=== PATIENT | male | born 1985 | race Caucasian/White ===

== ENCOUNTER → 2016-12-30 | Outpatient (CLI) | payer SELFPAY ==
--- NOTE | 2016-12-30 14:21 | REP ---
Clinical: Cough . Comparison: 11/05/2013 . Technique: PA and lateral. Findings: The mediastinum and cardiac silhouette are stable and within normal limits. The lung dolan chronic coarsened markings without acute consolidation, effusion, or pneumothorax. The skeletal structures are intact and normal. Impression: 1. Cannot exclude bronchitis. No focal consolidation. Signed by Sameer Sorenson MD 12/30/2016 02:12 P
== END ==
LOC: M WUC 13:59
PROVIDERS: ATTEND Physician Assistant
DX: R05 Cough (principal)

== ENCOUNTER 2018-10-24 14:37 | Emergency (ER) | payer OTHER, SELFPAY ==
[~2018-10-24] VITALS: Ht 188 cm; Wt 109.1 kg
[2018-10-24 14:37] VITALS: BP 124/78
--- NOTE | 2018-10-24 22:10 | ECGEPIP ---
Stationary ECG Study [facility] - ED Test Date: 2018-10-24 Pat Name: CASEY VALLE Department: Room: - Gender: M Bakery Clerk: : 1985 Requested By: CHANDA NICOLE PA-C. Order Number: [id number] Reading MD: Ramiro Lerner Measurements Intervals [place] Rate: 73 P: 42 VT: 113 QRS: 12 QRSD: 104 T: -6 QT: 391 QTc: 433 Interpretive Statements SINUS RHYTHM WITH SHORT VT INTERVAL Comparison tracing not on file Electronically Signed On 10-24-2018 22:09:43 EDT by Ramiro Lerner
== END 2018-10-24 17:28 | disposition left against medical advice (07) ==
LOC: M ED 14:37
DX: Z53.29 Procedure and treatment not carried out because of patient's decision for other reasons (principal)

== ENCOUNTER → 2018-12-05 | Outpatient (REF) | payer OTHER ==
[2018-12-05 13:53] LABS: BASO # 0.1 10^3/uL (0.0-0.2); BASO % 1.1 % (0.0-1.0); EOS # 0.4 10^3/uL (0.0-0.50); EOS % 3.5 % (0.0-3.0); HEMATOCRIT 48.7 % (42.0-52.0); HEMOGLOBIN 16.9 g/dl (13.5-17.5); LYMPH # 4.3 10^3/uL (1.5-4.5); LYMPH % 35.8 % (24.0-44.0); MEAN CORPUSCULAR HEMOGLOBIN 32.1 pg (27.0-33.0); MEAN CORPUSCULAR HGB CONC 34.7 g/dl (32.0-36.5); MEAN CORPUSCULAR VOLUME 92.6 fl (80.0-96.0); MONO # 0.9 10^3/uL (0.0-0.8); MONO % 7.8 % (0.0-5.0); NEUTROPHILS # 6.1 10^3/uL (1.8-7.7); NEUTROPHILS % 51.5 % (36.0-66.0); PLATELET COUNT, AUTOMATED 315 10^3/uL (150-450); RED BLOOD COUNT 5.26 10^6/uL (4.30-6.10); WHITE BLOOD COUNT 11.9 10^3/uL (4.0-10.0)
[2018-12-05 13:58] LABS: ALBUMIN 4.1 GM/DL (3.2-5.2); ALT/SGPT 27 U/L (12-78); BILIRUBIN,TOTAL 0.7 MG/DL (0.2-1.0); BLOOD UREA NITROGEN 7 MG/DL (7-18); CALCIUM LEVEL 8.6 MG/DL (8.5-10.1); CARBON DIOXIDE LEVEL 25 MEQ/L (21-32); CHLORIDE LEVEL 109 MEQ/L (98-107); CHOLESTEROL LEVEL 177 MG/DL (<200); CHOLESTEROL RISK RATIO 6.807 (<5); CREATININE FOR GFR 1.03 MG/DL (0.70-1.30); FREE T4 1.16 NG/DL (0.76-1.46); GLOMERULAR FILTRATION RATE > 60.0 (>60); GLUCOSE, FASTING 91 MG/DL (70-100); HDL CHOLESTEROL 26 MG/DL (>40); LDL CHOLESTEROL 90 MG/DL (<100); NON-HDL-C 151 MG/DL; POTASSIUM SERUM 3.7 MEQ/L (3.5-5.1); SODIUM LEVEL 140 MEQ/L (136-145); TOTAL PROTEIN 6.8 GM/DL (6.4-8.2); TRIGLYCERIDES LEVEL 306 MG/DL (<150)
[2018-12-05 14:00] LABS: TOTAL 25(OH) VITAMIN D 8.6 NG/ML (30.0-100.0)
[2018-12-05 15:29] LABS: HEMOGLOBIN A1c 5.3 %
[2018-12-07 14:11] LABS: Lyme Disease IgG/IgM Antibodie <0.91 ISR (0.00-0.90); Lyme Disease IgM Ab Quantitati <0.80 index (0.00-0.79)
== END ==
LOC: M LAB REF 12:31
PROVIDERS: ATTEND Family Medicine
DX: Z13.228 Encounter for screening for other metabolic disorders (principal); F32.9 Major depressive disorder, single episode, unspecified

== ENCOUNTER → 2018-12-05 | Outpatient (REF) | payer OTHER ==
[2018-12-05 14:16] LABS: APPEARANCE, URINE CLEAR (CLEAR); BACTERIA, URINE AUTO NEGATIVE (NEGATIVE); BILIRUBIN, URINE AUTO NEGATIVE (NEGATIVE); BLOOD, URINE BLOOD NEGATIVE (NEGATIVE); COLOR, URINE YELLOW (YELLOW); GLUCOSE, URINE (UA) AUTO NEGATIVE (NEGATIVE); KETONE, URINE AUTO NEGATIVE (NEGATIVE); LEUKOCYTE ESTERASE, URINE AUTO NEGATIVE (NEGATIVE); MUCUS, URINE SMALL (NEGATIVE); NITRITE, URINE AUTO NEGATIVE (NEGATIVE); PROTEIN, URINE AUTO NEGATIVE (NEGATIVE); RBC, URINE AUTO 0 /HPF (0-3); SPECIFIC GRAVITY URINE AUTO 1.005 (1.002-1.035); SQUAMOUS EPITHELIAL CELL UR AU 0 /HPF (0-6); UROBILINOGEN, URINE AUTO 0.2 mg/dL (0.0-2.0); WBC, URINE AUTO 0 /HPF (0-3)
== END ==
LOC: M LAB REF 12:10
PROVIDERS: ATTEND Family Medicine
DX: Z13.228 Encounter for screening for other metabolic disorders (principal); F32.9 Major depressive disorder, single episode, unspecified

== ENCOUNTER → 2020-12-02 | Outpatient (CLI) | payer OTHER ==
--- NOTE | 2020-12-02 12:06 | REPPI ---
INDICATION: M54.32 M79.602 PAIN IN LEFT ARM SCIATICA. COMPARISON: None. TECHNIQUE: AP, lateral, swimmer's and open-mouth views of the cervical spine. FINDINGS: Alignment and lordosis maintained without acute fracture/compression injury or subluxation. Marginal osteophytosis noted. Minimal disc space narrowing at C5-6 and C6-7. IMPRESSION: Degenerative spondylosis. <Electronically signed by Sameer Sorenson > 12/02/20 1200
--- NOTE | 2020-12-02 12:13 | REPPI ---
INDICATION: M54.32 M79.602 PAIN IN LEFT ARM SCIATICA. COMPARISON: Comparison MRI study November 03, 2013.. TECHNIQUE: Three views of the lumbar spine are provided. FINDINGS: Lumbar vertebral body heights are preserved. Alignment is normal. There is no evidence of spondylolysis or spondylolisthesis. Psoas margins are intact. Sacrum and SI joints appear intact. There is degenerative disc space narrowing at L4-5 which is unchanged from the comparison MR imaging in 2013. Other disc spaces are maintained. No bony destructive lesion is seen. No fracture or collapse is noted. IMPRESSION: Mild degenerative disc narrowing at L4-5. Otherwise negative lumbar spine radiographs. <Electronically signed by Basil Covarrubias > 12/02/20 [id number]
== END ==
LOC: M PLAIMG 11:31
PROVIDERS: ATTEND Physician Assistant
DX: M54.32 Sciatica, left side (principal); M79.602 Pain in left arm

== ENCOUNTER 2020-12-22 22:40 | Emergency (ER) | payer OTHER ==
[~2020-12-22] VITALS: Ht 188 cm; Wt 114.7 kg
[2020-12-23 00:28] LABS: MEAN CORPUSCULAR HEMOGLOBIN 32.7 pg (27.0-33.0); MEAN CORPUSCULAR HGB CONC 35.3 g/dl (32.0-36.5); MEAN CORPUSCULAR VOLUME 92.6 fl (80.0-96.0); PLATELET COUNT, AUTOMATED 184 10^3/uL (150-450); RED BLOOD COUNT 5.51 10^6/uL (4.30-6.10)
[2020-12-23 00:39] LABS: WHITE BLOOD COUNT 17.3 10^3/uL (4.0-10.0)
[2020-12-23 00:44] LABS: ALBUMIN 4.2 GM/DL (3.2-5.2); BILIRUBIN,DIRECT 0.1 MG/DL (0.0-0.2); BILIRUBIN,TOTAL 0.5 MG/DL (0.2-1.0); TOTAL PROTEIN 7.6 GM/DL (6.4-8.2)
[2020-12-23 00:46] LABS: ATYPICAL LYMPH 5 % (0-5); BASOPHILS 3 % (0-1); EOSINOPHILS 8 % (0-3); LYMPHOCYTES 36 % (16-44); MONOCYTES 4 % (0-5); NEUTROPHILS 44 % (28-66)
[2020-12-23 00:47] LABS: PLATELET ESTIMATE NORMAL (NORMAL)
--- NOTE | 2020-12-23 01:25 | REPVR ---
PROCEDURE INFORMATION: Exam: XR Complete Acute Abdomen Series Exam date and time: 12/22/2020 11:59 PM Age: 35 years old Clinical indication: Abdominal pain; Acute TECHNIQUE: Imaging protocol: XR complete acute abdomen series, including 2 or more views of the abdomen and a single view chest. COMPARISON: CR CHEST 2 VIEW 12/30/2016 2:05 PM FINDINGS: Lungs: Normal. No consolidation. Pleural spaces: Normal. No pleural effusions. No pneumothorax. Heart/Mediastinum: Normal. No cardiomegaly. Gastrointestinal tract: Nonobstructive bowel gas pattern. Intraperitoneal space: No free air. No organomegaly or mass effect. Bones/joints: Normal. No acute fracture. Soft tissues: Normal. IMPRESSION: No acute findings. Electronically signed by: Raleigh Nielson On 12/23/2020 01:25:42 AM
[2020-12-23] MEDS ORDERED: ISOVUE-370 76% 100ML VIAL As Ordered ONE (01:52)
--- NOTE | 2020-12-23 02:18 | REPVR ---
PROCEDURE INFORMATION: Exam: CT Abdomen And Pelvis With Contrast Exam date and time: 12/23/2020 1:57 AM Age: 35 years old Clinical indication: Abdominal pain; Localized; Right lower quadrant (rlq); Additional info: Rlq abd pain TECHNIQUE: Imaging protocol: Computed tomography of the abdomen and pelvis with contrast. Radiation optimization: All CT scans at this facility use at least one of these dose optimization techniques: automated exposure control; mA and/or kV adjustment per patient size (includes targeted exams where dose is matched to clinical indication); or iterative reconstruction. Contrast material: ISOVUE 370; Contrast volume: 100 ml; Contrast route: INTRAVENOUS (IV); COMPARISON: CR Abdomen,Flat Upright,PA CHEST 12/22/2020 11:52 PM FINDINGS: Liver: Normal. No mass. Gallbladder and bile ducts: Normal. No calcified stones. No ductal dilation. Pancreas: Normal. No ductal dilation. Spleen: Normal. No splenomegaly. Adrenal glands: Normal. No mass. Kidneys and ureters: Normal. No hydronephrosis. Stomach and bowel: No acute inflammatory change. No obstruction. No mucosal thickening. Appendix: There has been prior appendectomy. Intraperitoneal space: Unremarkable. No free air. No significant fluid collection. Vasculature: Unremarkable. No abdominal aortic aneurysm. Lymph nodes: Unremarkable. No enlarged lymph nodes. Urinary bladder: Unremarkable as visualized. Reproductive: Unremarkable as visualized. Bones/joints: Mixed areas of lucency and sclerosis throughout the pelvis suggesting Paget's disease of bone. There are degenerative changes in the spine and pelvis. Soft tissues: Unremarkable. IMPRESSION: 1. 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 2. No acute findings. Electronically signed by: Raleigh Nielson On 12/23/2020 02:18:05 AM
[2020-12-23] MEDS ORDERED: DICY10CA13 PO (04:53)
[2020-12-23] MEDS ORDERED: DICYCLOMINE 10 MG CAP PO ONE (04:55)
[2020-12-23 05:00] VITALS: BP 128/66
== END 2020-12-23 05:08 | disposition home or self-care (01) ==
LOC: M ED 22:40
DX: R10.30 Lower abdominal pain, unspecified (principal); R93.5 Abnormal findings on diagnostic imaging of other abdominal regions, including retroperitoneum; M54.5 Low back pain
CPT/HCPCS: 36415; 74021; 74177; 80047; 80076; 83690; 85025; 93041; 99284; Q9967

== ENCOUNTER → 2020-12-24 | Outpatient (REF) | payer OTHER ==
[~2020-12-24] MED LIST: DICY10CA13 PO
[2020-12-24 17:36] LABS: CALCIUM LEVEL 9.9 MG/DL (8.5-10.1)
[2020-12-24 17:41] LABS: PTH INTACT 57.5 PG/ML (18.5-88.0)
== END ==
LOC: M LAB REF 16:17
PROVIDERS: ATTEND Physician Assistant
DX: M89.9 Disorder of bone, unspecified (principal)

== ENCOUNTER → 2020-12-27 | Outpatient (CLI) | payer OTHER | LOC: M PLALAB 15:26 | PROVIDERS: ATTEND Internal Medicine Endocrinology, Diabetes & Metabolism | DX: M88.89 Osteitis deformans of multiple sites (principal) ==

== ENCOUNTER → 2021-02-12 | Outpatient (CLI) | payer OTHER ==
--- NOTE | 2021-02-12 15:45 | REPVR ---
PROCEDURE INFORMATION: Exam: MR Lumbar Spine Without Contrast Exam date and time: 02/12/2021 11:10 AM Age: 35 years old Clinical indication: Low back pain; Additional info: Radiculopathy R/O hnp TECHNIQUE: Imaging protocol: Multiplanar magnetic resonance images of the lumbar spine without intravenous contrast. COMPARISON: SPINE LUMBOSACRAL PARTIAL 12/02/2020 11:49 AM FINDINGS: Vertebrae: Hypoplastic ribs are present at the T12 level. There is partial sacralization of the L5 vertebra. No acute compression fracture is seen. Mild retrolisthesis of L4 on L5 is noted. Bone marrow signal is abnormally decreased on T1 and T2 weighted sequences. The findings can be secondary to diffuse marrow replacement, such as metastatic disease, multiple myeloma, lymphoma, renal osteodystrophy, Paget's disease, metabolic disorders, myeloproliferative disorders, and myelofibrosis. Clinical and laboratory correlation is recommended. Spinal cord: The conus medullaris terminates at the T12-L1 level. There is no evidence of arachnoiditis or cauda equina compression. L1-L2: There is mild facet arthropathy. No spinal canal or neural foraminal stenosis is present. L2-L3: There is mild facet arthropathy. No spinal canal or neural foraminal stenosis is present. L3-L4: There is mild facet arthropathy. This is causing mild bilateral neural foraminal narrowing. There is no spinal canal stenosis. L4-L5: There is disc dehydration, moderate diffuse circumferential disc bulging, and facet arthropathy. A small left hemilaminectomy defect is present. There is no significant spinal canal stenosis. There is moderate narrowing of the subarticular recesses, moderate left neural foraminal narrowing, and mild/moderate right neural foraminal narrowing. L5-S1: There is mild right neural foraminal narrowing due to facet arthropathy. There is no spinal canal or left foraminal stenosis. Soft tissues: Unremarkable. IMPRESSION: 1. Abnormal bone marrow signal as discussed above 2. Degenerative and postoperative changes of the lumbar spine. Electronically signed by: Sathish Escalante On 02/12/2021 15:45:00 PM
== END ==
LOC: M RAD 10:02
PROVIDERS: ATTEND Physician Assistant
DX: M54.16 Radiculopathy, lumbar region (principal)

== ENCOUNTER → 2021-02-13 | Outpatient (CLI) | payer OTHER ==
--- NOTE | 2021-02-13 09:47 | REP ---
INDICATION: OSTEOPOROSIS. COMPARISON: None. TECHNIQUE: Single AP view of the pelvis FINDINGS: Osseous structures, joint spaces, and surrounding soft tissues are normal. Bone density is relatively normal. No evidence for acute or healed injury. IMPRESSION: Normal age-appropriate pelvic radiograph. <Electronically signed by Sameer Sorenson > 02/13/21 0922
--- NOTE | 2021-02-13 14:11 | REP ---
INDICATION: OSTEOPOROSIS. Osteitis deformans. COMPARISON: Comparison is made with the pelvic radiograph from the same date and CT study from December 23, 2020.. TECHNIQUE/RADIOTRACER AND DOSE: 22.0 mCi of Technetium-99m MDP was injected and standard whole-body bone scanning is acquired. FINDINGS: There is a normal distribution of skeletal tracer with uptake in bilateral kidneys and in the urinary bladder. There is no evidence to suggest skeletal metastatic disease. There is no scintigraphic evidence to suggest Paget's disease of the pelvis or any other skeletal structure. IMPRESSION: Negative whole body radionuclide bone scan. <Electronically signed by Basil Covarrubias > 02/13/21 2510
== END ==
LOC: M RAD 09:11
PROVIDERS: ATTEND Internal Medicine Endocrinology, Diabetes & Metabolism
DX: M88.89 Osteitis deformans of multiple sites (principal)
CPT/HCPCS: 72190; 78306; A9503

== ENCOUNTER → 2021-04-10 | Outpatient (CLI) | payer OTHER ==
[2021-04-10 16:33] LABS: TOTAL PROTEIN 7.2 GM/DL (6.4-8.2)
== END ==
LOC: M PLALAB 12:14
PROVIDERS: ATTEND Internal Medicine Endocrinology, Diabetes & Metabolism
DX: M88.89 Osteitis deformans of multiple sites (principal)

== ENCOUNTER 2021-09-22 09:39 | Emergency (ER) | payer OTHER ==
[~2021-09-22] VITALS: Ht 188 cm; Wt 109.8 kg
[2021-09-22 09:40] VITALS: BP 113/76
[2021-09-22] MEDS ORDERED: ACET-683 PO (10:04)
[2021-09-22] MEDS ORDERED: dayquil PO (10:04)
[2021-09-22] MEDS ORDERED: ACETAMINOPHEN TAB 650MG DOSE (2X325MG) PO ONE (10:45)
[2021-09-22] MEDS ORDERED: KETOROLAC 60MG 2ML VIAL IM ONE (10:45)
[2021-09-22 11:35] LABS: BASO # 0.1 10^3/uL (0.0-0.2); BASO % 1.3 % (0.0-1.0); EOS # 0.1 10^3/uL (0.0-0.5); EOS % 1.5 % (0.0-3.0); HEMATOCRIT 48.6 % (42.0-52.0); HEMOGLOBIN 16.5 g/dl (13.5-17.5); LYMPH # 1.7 10^3/uL (1.5-5.0); LYMPH % 22.3 % (24.0-44.0); MEAN CORPUSCULAR HEMOGLOBIN 31.5 pg (27.0-33.0); MEAN CORPUSCULAR VOLUME 92.9 fl (80.0-96.0); MONO % 19.6 % (2.0-8.0); NEUTROPHILS # 4.3 10^3/uL (1.5-8.5); NEUTROPHILS % 54.9 % (36.0-66.0); PLATELET COUNT, AUTOMATED 200 10^3/uL (150-450); RED BLOOD COUNT 5.23 10^6/uL (4.30-6.10); WHITE BLOOD COUNT 7.8 10^3/uL (4.0-10.0)
[2021-09-22 12:11] LABS: BLOOD UREA NITROGEN 9 MG/DL (7-18); CALCIUM LEVEL 9.1 MG/DL (8.5-10.1); CARBON DIOXIDE LEVEL 25 MEQ/L (21-32); CHLORIDE LEVEL 109 MEQ/L (98-107); CREATININE FOR GFR 1.16 MG/DL (0.70-1.30); GLOMERULAR FILTRATION RATE > 60.0 (>60); GLUCOSE, FASTING 87 MG/DL (70-100); POTASSIUM SERUM 4.5 MEQ/L (3.5-5.1); SODIUM LEVEL 140 MEQ/L (136-145)
[2021-09-22 12:16] LABS: MONO # 1.5 10^3/uL (0.0-0.8)
[2021-09-22 12:31] LABS: ERYTHROCYTE SEDIMENTATION RATE 9 mm/hr (0-15)
[2021-09-22] MEDS ORDERED: KETO10TAB PO (13:35)
== END 2021-09-22 13:46 | disposition home or self-care (01) ==
LOC: M ED 09:39
DX: B34.9 Viral infection, unspecified (principal); R51.9 Headache, unspecified; F17.200 Nicotine dependence, unspecified, uncomplicated
CPT/HCPCS: 80048; 85025; 85652; 96372; 99282; J1885

== ENCOUNTER 2021-11-05 17:15 | Emergency (ER) | payer OTHER ==
[~2021-11-05] VITALS: Ht 188 cm; Wt 110.6 kg
[2021-11-05 17:15] VITALS: BP 126/80
[~2021-11-05 17:15] MED LIST changes: +ACET-683 PO; +KETO10TAB PO; +dayquil PO
[2021-11-06] MEDS ORDERED: HYDR1CRE30 TOP (09:15)
[2021-11-06] MEDS ORDERED: ANBE20GE TOP (09:15)
== END 2021-11-05 20:40 | disposition left against medical advice (07) ==
LOC: M ED 20:26
DX: Z53.21 Procedure and treatment not carried out due to patient leaving prior to being seen by health care provider (principal)

== ENCOUNTER 2021-11-06 07:45 | Emergency (ER) | payer OTHER ==
[~2021-11-06] VITALS: Ht 188 cm; Wt 109.8 kg
[2021-11-06 07:46] VITALS: BP 142/85
[2021-11-06] MEDS ORDERED: ANBE20GE TOP (09:15)
[2021-11-06] MEDS ORDERED: HYDR1CRE30 TOP (09:15)
== END 2021-11-06 09:35 | disposition home or self-care (01) ==
LOC: M ED 07:45
DX: R09.81 Nasal congestion (principal); K64.8 Other hemorrhoids; F17.200 Nicotine dependence, unspecified, uncomplicated; F10.10 Alcohol abuse, uncomplicated; Z79.899 Other long term (current) drug therapy

== ENCOUNTER → 2021-12-16 | Outpatient (REF) | payer OTHER ==
[~2021-12-16] MED LIST changes: +ANBE20GE TOP; +HYDR1CRE30 TOP
== END ==
LOC: M LAB REF 16:41
PROVIDERS: ATTEND Physician Assistant Medical
DX: H60.8X2 Other otitis externa, left ear (principal)

== ENCOUNTER → 2022-03-06 | Outpatient (CLI) | payer OTHER ==
[~2022-03-06] MED LIST changes: +PROHANCE 279.3MG/ML 15ML VIAL ONE; +PROHANCE 279.3MG/ML 5ML VIAL ONE
== END ==
LOC: M PLAIMG 10:25
PROVIDERS: ATTEND Physician Assistant Medical
DX: H90.3 Sensorineural hearing loss, bilateral (principal)

== ENCOUNTER 2022-05-20 10:08 | Emergency (ER) | payer OTHER ==
[~2022-05-20] VITALS: Ht 188 cm; Wt 114.1 kg
[~2022-05-20 10:08] MED LIST changes: -PROHANCE 279.3MG/ML 15ML VIAL ONE; -PROHANCE 279.3MG/ML 5ML VIAL ONE
[2022-05-20] MEDS ORDERED: ERGO500029 (10:14)
[2022-05-20] MEDS ORDERED: ATOR1TAB21 (10:14)
[2022-05-20] MEDS ORDERED: NS 1,000 ML IV ONE (11:20)
[2022-05-20] MEDS ORDERED: KETOROLAC 30 MG/ML 1ML VIAL IV ONE (11:20)
[2022-05-20 11:52] LABS: BASO # 0.1 10^3/uL (0.0-0.2); BASO % 0.6 % (0.0-1.0); EOS # 0.4 10^3/uL (0.0-0.5); HEMATOCRIT 47.2 % (42.0-52.0); HEMOGLOBIN 15.9 g/dl (13.5-17.5); LYMPH # 4.3 10^3/uL (1.5-5.0); LYMPH % 19.8 % (24.0-44.0); MEAN CORPUSCULAR HGB CONC 33.7 g/dl (32.0-36.5); MONO % 9.8 % (2.0-8.0); NEUTROPHILS # 14.7 10^3/uL (1.5-8.5); NEUTROPHILS % 67.3 % (36.0-66.0); PLATELET COUNT, AUTOMATED 274 10^3/uL (150-450); RED BLOOD COUNT 5.13 10^6/uL (4.30-6.10); WHITE BLOOD COUNT 21.9 10^3/uL (4.0-10.0)
[2022-05-20 12:10] LABS: RSV AMPLIFICATION NEGATIVE (NEGATIVE)
[2022-05-20] MEDS ORDERED: LIDOCAINE 1% MDV 20ML VIAL SC ONE (12:15)
[2022-05-20 12:22] LABS: MONO # 2.1 10^3/uL (0.0-0.8)
[2022-05-20 12:41] LABS: ERYTHROCYTE SEDIMENTATION RATE 38 mm/hr (0-15)
[2022-05-20] MEDS ORDERED: cefTRIAXone SOD 1 GM in D5W MINI-BAG PLUS 50 ML IV ONE (13:00)
[2022-05-20] MEDS ORDERED: CIPR-249 PO (13:10)
[2022-05-20] MEDS ORDERED: METR-265 PO (13:10)
[2022-05-20] MEDS ORDERED: HYDR-3713 PO (13:10)
[2022-05-20 13:39] VITALS: BP 129/68
== END 2022-05-20 13:49 | disposition home or self-care (01) ==
LOC: M ED 10:08
DX: L05.01 Pilonidal cyst with abscess (principal); M79.10 Myalgia, unspecified site; E78.5 Hyperlipidemia, unspecified; F17.200 Nicotine dependence, unspecified, uncomplicated; Z79.899 Other long term (current) drug therapy
CPT/HCPCS: 10060; 76857; 80047; 85025; 85652; 86140; 87070; 87076; 87631; 96361; 96374; 96375; 99284; J0696; J1885

== ENCOUNTER → 2022-05-25 | Outpatient (REF) | payer OTHER ==
[~2022-05-25] MED LIST changes: +ATOR1TAB21; +CIPR-249 PO; +ERGO500029; +HYDR-3713 PO; +METR-265 PO
[2022-05-25 14:16] LABS: HEMATOCRIT 47.4 % (42.0-52.0); HEMOGLOBIN 16.2 g/dl (13.5-17.5); MEAN CORPUSCULAR HEMOGLOBIN 31.4 pg (27.0-33.0); MEAN CORPUSCULAR HGB CONC 34.2 g/dl (32.0-36.5); MEAN CORPUSCULAR VOLUME 91.9 fl (80.0-96.0); PLATELET COUNT, AUTOMATED 371 10^3/uL (150-450); RED BLOOD COUNT 5.16 10^6/uL (4.30-6.10); WHITE BLOOD COUNT 14.6 10^3/uL (4.0-10.0)
[2022-05-25 15:14] LABS: ATYPICAL LYMPH 12 % (0-5); BASOPHILS 1 % (0-1); EOSINOPHILS 6 % (0-3); LYMPHOCYTES 19 % (16-44); MONOCYTES 8 % (0-5); NEUTROPHILS 53 % (28-66)
[2022-05-25 15:15] LABS: PLATELET ESTIMATE NORMAL (NORMAL)
== END ==
LOC: M LAB REF 13:22
PROVIDERS: ATTEND Nurse Practitioner Family
DX: L05.01 Pilonidal cyst with abscess (principal)

== ENCOUNTER 2022-06-09 09:27 | Emergency (ER) | payer OTHER ==
[~2022-06-09] VITALS: Ht 188 cm; Wt 112.6 kg
[2022-06-09] MEDS ORDERED: IBUP200C33 PO (09:37)
[2022-06-09] MEDS ORDERED: ZYRTTAB8 PO (09:37)
[2022-06-09 13:42] VITALS: BP 121/78
== END 2022-06-09 13:44 | disposition home or self-care (01) ==
LOC: M ED 09:27
DX: L05.01 Pilonidal cyst with abscess (principal); E78.5 Hyperlipidemia, unspecified; K64.9 Unspecified hemorrhoids; F17.200 Nicotine dependence, unspecified, uncomplicated; F10.10 Alcohol abuse, uncomplicated; Z79.899 Other long term (current) drug therapy

== ENCOUNTER 2022-08-13 05:59 | Emergency (ER) | payer OTHER ==
[~2022-08-13] VITALS: Ht 188 cm; Wt 117.3 kg
[~2022-08-13 05:59] MED LIST changes: +ACET1CAP12 PO; -ATOR1TAB21; +ATOR1TAB21 PO; -ERGO500029; +ERGO500029 PO; +IBUP200C33 PO; +ZYRTTAB8 PO
[2022-08-13] MEDS ORDERED: COMBIVENT RESPIMAT 100-20MCG INHALER 4GM INH ONE (07:50)
[2022-08-13] MEDS ORDERED: predniSONE 20 MG TAB PO ONE (07:50)
[2022-08-13] MEDS ORDERED: PRED20TA PO (09:01)
[2022-08-13] MEDS ORDERED: COMBAER6 INH (09:01)
[2022-08-13 09:10] VITALS: BP 128/74
== END 2022-08-13 09:14 | disposition home or self-care (01) ==
LOC: M ED 05:59
DX: B34.9 Viral infection, unspecified (principal); R05.9 Cough, unspecified; Z86.16 Personal history of COVID-19; F17.200 Nicotine dependence, unspecified, uncomplicated; Z90.89 Acquired absence of other organs
CPT/HCPCS: 71046; 87428; 94640; 99283; J7512

== ENCOUNTER → 2022-08-14 | Outpatient (REF) | payer OTHER ==
[~2022-08-14] MED LIST changes: +COMBAER6 INH; +PRED20TA PO
[2022-08-14 12:55] LABS: CHOLESTEROL RISK RATIO 5.13 (<5); HDL CHOLESTEROL 29.8 MG/DL (>40); LDL CHOLESTEROL 90.4 MG/DL (<100)
== END ==
LOC: M LAB REF 11:42
PROVIDERS: ATTEND Nurse Practitioner Family
DX: E78.5 Hyperlipidemia, unspecified (principal)

== ENCOUNTER → 2022-08-17 | Outpatient (CLI) | payer OTHER | LOC: M LABSMTC 10:46 | PROVIDERS: ATTEND Anesthesiology | DX: Z01.812 Encounter for preprocedural laboratory examination (principal); Z11.52 Encounter for screening for COVID-19 ==

== ENCOUNTER → 2022-10-20 | Outpatient (CLI) | payer OTHER ==
[~2022-10-20] MED LIST changes: +ERGO500029
== END ==
LOC: M LABSMTC 07:39
PROVIDERS: ATTEND Anesthesiology
DX: Z20.828 Contact with and (suspected) exposure to other viral communicable diseases (principal); Z11.51 Encounter for screening for human papillomavirus (HPV)

== ENCOUNTER 2022-10-22 12:16 | Day surgery (SDC) | payer OTHER ==
[~2022-10-22] VITALS: Ht 188 cm; Wt 91.1 kg
[2022-10-22] MEDS ORDERED: LR 1,000 ML IV SCH ×2 (12:45→14:50)
[2022-10-22] MEDS ORDERED: LIDOCAINE 2% 100MG/5ML SDV (FOR ANES.) As Ordered ONE (13:49)
[2022-10-22] MEDS ORDERED: propofoL 200 MG/20 ML VIAL As Ordered ONE (13:49)
[2022-10-22] MEDS ORDERED: ONDANSETRON 4MG 2ML VIAL As Ordered ONE (13:53)
[2022-10-22] MEDS ORDERED: fentaNYL 100 MCG/2 ML INJECTION As Ordered ONE (13:54)
[2022-10-22] MEDS ORDERED: MIDAZOLAM INJ 2MG/2ML VIAL As Ordered ONE (13:54)
[2022-10-22] MEDS ORDERED: ACETAMINOPHEN 1000MG 100ML IV BAG As Ordered ONE (14:34)
[2022-10-22] MEDS ORDERED: KETOROLAC 60MG 2ML VIAL As Ordered ONE (14:42)
[2022-10-22] MEDS ORDERED: CHLOROPROCAINE PRES. FREE 2% 20ML VIAL As Ordered ONE (14:45)
[2022-10-22] MEDS ORDERED: fentaNYL 100 MCG/2 ML INJECTION IV PRN (14:50)
[2022-10-22] MEDS ORDERED: HYDROMORPHONE HCL 0.5 MG/ 0.5 ML SYRINGE IV PRN (14:50)
[2022-10-22] MEDS ORDERED: ONDANSETRON 4MG 2ML VIAL IV PRN (14:50)
[2022-10-22] MEDS ORDERED: oxyCODONE 5MG TAB PO PRN (14:50)
[2022-10-22] MEDS ORDERED: NORCO, ANEXSIA 5/325MG TABLET (HYDROcodone/ACETAMINOPHEN) PO PRN (15:30)
[2022-10-22 16:10] VITALS: BP 120/71
== END 2022-10-22 16:30 | disposition home or self-care (01) ==
LOC: M SDC 12:16
PROVIDERS: ATTEND Surgery
DX: L05.91 Pilonidal cyst without abscess (principal); E78.5 Hyperlipidemia, unspecified; K21.9 Gastro-esophageal reflux disease without esophagitis; G47.33 Obstructive sleep apnea (adult) (pediatric); Z79.899 Other long term (current) drug therapy; F17.210 Nicotine dependence, cigarettes, uncomplicated
CPT/HCPCS: 11770; 88304; J1100; J2250; J2405; J3010

== ENCOUNTER 2022-10-30 17:04 | Emergency (ER) | payer OTHER ==
[~2022-10-30] VITALS: Ht 188 cm; Wt 116.3 kg
[2022-10-30] MEDS ORDERED: SILVER NITRATE APPLICATOR (1 = QTY 10) TOP ONE (22:50)
[2022-10-30 23:01] VITALS: BP 125/76
== END 2022-10-30 23:06 | disposition home or self-care (01) ==
LOC: M ED 17:04
DX: L76.22 Postprocedural hemorrhage of skin and subcutaneous tissue following other procedure (principal); E78.5 Hyperlipidemia, unspecified; G47.33 Obstructive sleep apnea (adult) (pediatric); F17.200 Nicotine dependence, unspecified, uncomplicated; Z79.1 Long term (current) use of non-steroidal anti-inflammatories (NSAID); Z79.02 Long term (current) use of antithrombotics/antiplatelets; Z79.899 Other long term (current) drug therapy

== ENCOUNTER → 2022-11-16 | Outpatient (REF) | payer OTHER ==
[2022-11-16 14:41] LABS: BASO # 0.1 10^3/uL (0.0-0.2); BASO % 0.9 % (0.0-1.0); EOS # 0.6 10^3/uL (0.0-0.5); EOS % 4.1 % (0.0-3.0); HEMATOCRIT 48.4 % (42.0-52.0); HEMOGLOBIN 16.2 g/dl (13.5-17.5); LYMPH # 5.1 10^3/uL (1.5-5.0); MEAN CORPUSCULAR HEMOGLOBIN 31.5 pg (27.0-33.0); MEAN CORPUSCULAR HGB CONC 33.5 g/dl (32.0-36.5); MONO # 0.9 10^3/uL (0.0-0.8); MONO % 6.6 % (2.0-8.0); NEUTROPHILS # 7.4 10^3/uL (1.5-8.5); PLATELET COUNT, AUTOMATED 300 10^3/uL (150-450); RED BLOOD COUNT 5.15 10^6/uL (4.30-6.10); WHITE BLOOD COUNT 14.2 10^3/uL (4.0-10.0)
[2022-11-16 19:16] LABS: THYROID STIMULATING HORMONE 4.717 uIU/ML (0.55-4.78)
[2022-11-16 19:17] LABS: FREE T4 1.05 NG/DL (0.89-1.76)
[2022-11-16 19:23] LABS: ALKALINE PHOSPHATASE 94 U/L (46-116); ALT/SGPT 26 U/L (7.0-40); AST/SGOT 24 U/L (<34); BILIRUBIN,TOTAL 0.5 MG/DL (0.3-1.2); BLOOD UREA NITROGEN 6 MG/DL (9-23); CALCIUM LEVEL 9.4 MG/DL (8.5-10.1); CARBON DIOXIDE LEVEL 26 MMOL/L (20-31); CHLORIDE LEVEL 108 MMOL/L (98-107); CHOLESTEROL LEVEL 155 MG/DL (<200); CHOLESTEROL RISK RATIO 5.06 (<5); CREATININE FOR GFR 0.95 MG/DL (0.70-1.30); GLOMERULAR FILTRATION RATE > 60.0 (>60); GLUCOSE, FASTING 137 MG/DL (60-100); HDL CHOLESTEROL 30.6 MG/DL (>40); NON-HDL-C 124.4 MG/DL; SODIUM LEVEL 142 MMOL/L (136-145); TOTAL PROTEIN 6.8 G/DL (5.7-8.2); TRIGLYCERIDES LEVEL 272 MG/DL (<150)
== END ==
LOC: M LAB REF 12:15
PROVIDERS: ATTEND Nurse Practitioner Family
DX: Z13.228 Encounter for screening for other metabolic disorders (principal)

== ENCOUNTER 2022-11-26 10:18 | Emergency (ER) | payer OTHER ==
[~2022-11-26] VITALS: Ht 188 cm; Wt 119.6 kg
[2022-11-26 10:50] LABS: HEMATOCRIT 45.3 % (42.0-52.0); HEMOGLOBIN 15.4 g/dl (13.5-17.5); MEAN CORPUSCULAR HEMOGLOBIN 31.8 pg (27.0-33.0); MEAN CORPUSCULAR VOLUME 93.6 fl (80.0-96.0); PLATELET COUNT, AUTOMATED 257 10^3/uL (150-450); RED BLOOD COUNT 4.84 10^6/uL (4.30-6.10); WHITE BLOOD COUNT 12.5 10^3/uL (4.0-10.0)
[2022-11-26 11:23] LABS: BLOOD UREA NITROGEN 8 MG/DL (9-23); CALCIUM LEVEL 9.3 MG/DL (8.5-10.1); CARBON DIOXIDE LEVEL 29 MMOL/L (20-31); CHLORIDE LEVEL 107 MMOL/L (98-107); CREATININE FOR GFR 0.98 MG/DL (0.70-1.30); GLOMERULAR FILTRATION RATE > 60.0 (>60); GLUCOSE, FASTING 93 MG/DL (60-100); POTASSIUM SERUM 4.2 MMOL/L (3.5-5.1); SODIUM LEVEL 140 MMOL/L (136-145)
[2022-11-26 11:29] LABS: RSV AMPLIFICATION NEGATIVE (NEGATIVE)
[2022-11-26] MEDS ORDERED: NS 1,000 ML IV ONE (12:00)
[2022-11-26 12:41] LABS: APPEARANCE, URINE CLEAR (CLEAR); BACTERIA, URINE AUTO NEGATIVE (NEGATIVE); BILIRUBIN, URINE AUTO NEGATIVE (NEGATIVE); BLOOD, URINE BLOOD NEGATIVE (NEGATIVE); COLOR, URINE STRAW (YELLOW); GLUCOSE, URINE (UA) AUTO NEGATIVE (NEGATIVE); KETONE, URINE AUTO NEGATIVE (NEGATIVE); LEUKOCYTE ESTERASE, URINE AUTO TRACE (NEGATIVE); NITRITE, URINE AUTO NEGATIVE (NEGATIVE); PROTEIN, URINE AUTO NEGATIVE (NEGATIVE); RBC, URINE AUTO 0 /HPF (0-3); SPECIFIC GRAVITY URINE AUTO 1.002 (1.002-1.035); SQUAMOUS EPITHELIAL CELL UR AU 0 /HPF (0-6); UROBILINOGEN, URINE AUTO 0.2 mg/dL (0.0-2.0); WBC, URINE AUTO 0 /HPF (0-3)
[2022-11-26 13:00] LABS: FREE T4 0.97 NG/DL (0.89-1.76); THYROID STIMULATING HORMONE 2.546 uIU/ML (0.55-4.78)
[2022-11-26 13:05] LABS: CK-MB VALUE MASS 1.2 NG/ML (<3.6)
[2022-11-26 13:07] LABS: ALBUMIN 4.2 G/DL (3.2-5.2); ALKALINE PHOSPHATASE 99 U/L (46-116); ALT/SGPT 32 U/L (7.0-40); AST/SGOT 31 U/L (<34); BILIRUBIN,DIRECT 0.1 MG/DL (<0.4); BILIRUBIN,TOTAL 0.3 MG/DL (0.3-1.2); MONO REFLEX EBV COMP NEGATIVE (NEGATIVE)
[2022-11-26 13:10] LABS: CPK CREATINE PHOSPHOKINASE 168 U/L (46-171); MB/CK RELATIVE INDEX 0.71 (< OR =4)
[2022-11-26 17:00] VITALS: BP 132/70
[2022-11-27 16:09] LABS: EBV AB TO NUCLEAR ANTIGEN 75.9 U/mL (0.0-17.9); EBV VIRAL CAPSID AG IgG >600.0 U/mL (0.0-17.9); EBV VIRAL CAPSID AG IgM <36.0 U/mL (0.0-35.9)
== END 2022-11-26 17:56 | disposition home or self-care (01) ==
LOC: M ED 10:18
DX: M26.629 Arthralgia of temporomandibular joint, unspecified side (principal); R53.81 Other malaise; E78.5 Hyperlipidemia, unspecified; M54.50 Low back pain, unspecified; G47.33 Obstructive sleep apnea (adult) (pediatric); F17.200 Nicotine dependence, unspecified, uncomplicated; F10.10 Alcohol abuse, uncomplicated; Z79.02 Long term (current) use of antithrombotics/antiplatelets

== ENCOUNTER 2022-12-07 09:25 | Emergency (ER) | payer OTHER ==
[~2022-12-07] VITALS: Ht 188 cm; Wt 113.1 kg
[2022-12-07] MEDS ORDERED: MILKSUS3 PO (09:43)
[2022-12-07] MEDS ORDERED: POLY510P14 (09:43)
[2022-12-07 11:07] LABS: HEMATOCRIT 46.1 % (42.0-52.0); HEMOGLOBIN 16.1 g/dl (13.5-17.5); MEAN CORPUSCULAR HEMOGLOBIN 32.1 pg (27.0-33.0); MEAN CORPUSCULAR HGB CONC 34.9 g/dl (32.0-36.5); MEAN CORPUSCULAR VOLUME 91.8 fl (80.0-96.0); PLATELET COUNT, AUTOMATED 275 10^3/uL (150-450); RED BLOOD COUNT 5.02 10^6/uL (4.30-6.10); WHITE BLOOD COUNT 15.6 10^3/uL (4.0-10.0)
[2022-12-07 11:29] LABS: LIPASE 37 U/L (12-53)
[2022-12-07] MEDS ORDERED: NS 1,000 ML IV ONE (11:30)
[2022-12-07 11:31] LABS: ALBUMIN 4.2 G/DL (3.2-5.2); ALKALINE PHOSPHATASE 93 U/L (46-116); ALT/SGPT 26 U/L (7.0-40); AST/SGOT 25 U/L (<34); BILIRUBIN,DIRECT 0.2 MG/DL (<0.4); BILIRUBIN,TOTAL 0.6 MG/DL (0.3-1.2); BLOOD UREA NITROGEN 9 MG/DL (9-23); CALCIUM LEVEL 9.6 MG/DL (8.5-10.1); CARBON DIOXIDE LEVEL 26 MMOL/L (20-31); CHLORIDE LEVEL 107 MMOL/L (98-107); CREATININE FOR GFR 0.91 MG/DL (0.70-1.30); GLOMERULAR FILTRATION RATE > 60.0 (>60); GLUCOSE, FASTING 80 MG/DL (60-100); POTASSIUM SERUM 4.5 MMOL/L (3.5-5.1); SODIUM LEVEL 140 MMOL/L (136-145); TOTAL PROTEIN 7.3 G/DL (5.7-8.2)
[2022-12-07] MEDS ORDERED: ISOVUE-370 76% 100ML VIAL As Ordered ONE (11:34)
[2022-12-07 11:38] LABS: ATYPICAL LYMPH 7 % (0-5); BASOPHILS 1 % (0-1); EOSINOPHILS 2 % (0-3); LYMPHOCYTES 19 % (16-44); MONOCYTES 3 % (0-5); NEUTROPHILS 68 % (28-66)
[2022-12-07 11:39] LABS: ANISOCYTOSIS 1+; PLATELET ESTIMATE NORMAL (NORMAL)
[2022-12-07 11:51] LABS: APPEARANCE, URINE CLEAR (CLEAR); BACTERIA, URINE AUTO NEGATIVE (NEGATIVE); BILIRUBIN, URINE AUTO NEGATIVE (NEGATIVE); BLOOD, URINE BLOOD NEGATIVE (NEGATIVE); COLOR, URINE STRAW (YELLOW); GLUCOSE, URINE (UA) AUTO NEGATIVE (NEGATIVE); KETONE, URINE AUTO TRACE mg/dL (NEGATIVE); LEUKOCYTE ESTERASE, URINE AUTO NEGATIVE (NEGATIVE); NITRITE, URINE AUTO NEGATIVE (NEGATIVE); PROTEIN, URINE AUTO NEGATIVE (NEGATIVE); RBC, URINE AUTO 0 /HPF (0-3); SPECIFIC GRAVITY URINE AUTO 1.003 (1.002-1.035); SQUAMOUS EPITHELIAL CELL UR AU 0 /HPF (0-6); UROBILINOGEN, URINE AUTO 0.2 mg/dL (0.0-2.0); WBC, URINE AUTO 0 /HPF (0-3)
[2022-12-07 13:33] LABS: MONO SCRN NEGATIVE (NEGATIVE)
[2022-12-07 14:19] VITALS: BP 117/72
[2022-12-07] MEDS ORDERED: PANTOPRAZOLE 40MG TAB (PROTONIX) PO ONE (14:55)
[2022-12-07] MEDS ORDERED: AUGMENTIN 875 MG TAB PO ONE (14:55)
[2022-12-07] MEDS ORDERED: AMOX875T2 PO (14:56)
[2022-12-07] MEDS ORDERED: PROT1TAB2 PO (14:56)
== END 2022-12-07 15:15 | disposition home or self-care (01) ==
LOC: M ED 09:25
DX: K52.9 Noninfective gastroenteritis and colitis, unspecified (principal); F17.200 Nicotine dependence, unspecified, uncomplicated; F10.10 Alcohol abuse, uncomplicated; Z79.2 Long term (current) use of antibiotics; Z79.899 Other long term (current) drug therapy
CPT/HCPCS: 74177; 80048; 80076; 81001; 83690; 85025; 86308; 96360; 99284; Q9967

== ENCOUNTER 2022-12-11 21:42 | Emergency (ER) | payer OTHER ==
[~2022-12-11] VITALS: Ht 188 cm; Wt 114.1 kg
[~2022-12-11 21:42] MED LIST changes: +AMOX875T2 PO; +MILKSUS3 PO; +POLY510P14; +PROT1TAB2 PO
[2022-12-11 23:36] LABS: GC DNA AMPLIFICATION NEGATIVE (NEGATIVE)
[2022-12-12] MEDS ORDERED: IBUPROFEN 600MG TAB PO ONE (00:10)
[2022-12-12 00:32] LABS: BLOOD UREA NITROGEN 5 MG/DL (9-23); CALCIUM LEVEL 9.3 MG/DL (8.5-10.1); CARBON DIOXIDE LEVEL 26 MMOL/L (20-31); CHLORIDE LEVEL 107 MMOL/L (98-107); CREATININE FOR GFR 0.88 MG/DL (0.70-1.30); GLOMERULAR FILTRATION RATE > 60.0 (>60); GLUCOSE, FASTING 89 MG/DL (60-100); SODIUM LEVEL 141 MMOL/L (136-145)
[2022-12-12 00:47] LABS: BASO # 0.2 10^3/uL (0.0-0.2); BASO % 1.1 % (0.0-1.0); EOS # 1.1 10^3/uL (0.0-0.5); EOS % 6.8 % (0.0-3.0); HEMATOCRIT 43.5 % (42.0-52.0); HEMOGLOBIN 15.2 g/dl (13.5-17.5); LYMPH # 5.8 10^3/uL (1.5-5.0); LYMPH % 36.4 % (24.0-44.0); MEAN CORPUSCULAR HEMOGLOBIN 32.3 pg (27.0-33.0); MEAN CORPUSCULAR HGB CONC 34.9 g/dl (32.0-36.5); MEAN CORPUSCULAR VOLUME 92.6 fl (80.0-96.0); MONO # 1.1 10^3/uL (0.0-0.8); MONO % 6.8 % (2.0-8.0); NEUTROPHILS # 7.7 10^3/uL (1.5-8.5); NEUTROPHILS % 48.5 % (36.0-66.0); PLATELET COUNT, AUTOMATED 272 10^3/uL (150-450); WHITE BLOOD COUNT 15.8 10^3/uL (4.0-10.0)
[2022-12-12 00:56] VITALS: BP 131/77
[2022-12-12] MEDS ORDERED: LevoFLOXacin 500 MG TABLET PO ONE (01:15)
[2022-12-12] MEDS ORDERED: LEVO1TAB39 PO (01:24)
[2022-12-12] MEDS ORDERED: METR-265 PO (01:24)
[2022-12-12] MEDS ORDERED: IBUP-1022 PO (01:29)
== END 2022-12-12 01:32 | disposition home or self-care (01) ==
LOC: M ED 21:42
DX: N45.1 Epididymitis (principal); E78.5 Hyperlipidemia, unspecified; G47.33 Obstructive sleep apnea (adult) (pediatric); M54.50 Low back pain, unspecified; R51.9 Headache, unspecified; F10.10 Alcohol abuse, uncomplicated; Z79.02 Long term (current) use of antithrombotics/antiplatelets; Z79.899 Other long term (current) drug therapy

== ENCOUNTER → 2022-12-15 | Outpatient (REF) | payer OTHER ==
[~2022-12-15] MED LIST changes: +IBUP-1022 PO; +LEVO1TAB39 PO
== END ==
LOC: M LAB REF 12:16
PROVIDERS: ATTEND Nurse Practitioner Family
DX: L05.01 Pilonidal cyst with abscess (principal)

== ENCOUNTER 2023-01-11 15:10 | Emergency (ER) | payer OTHER ==
[~2023-01-11] VITALS: Ht 188 cm; Wt 109.8 kg
[2023-01-11] MEDS ORDERED: AMOX875T2 (15:20)
[2023-01-11] MEDS ORDERED: ONDANSETRON 4MG 2ML VIAL IV ONE (16:05)
[2023-01-11] MEDS ORDERED: NS 1,000 ML IV ONE (16:05)
[2023-01-11 16:06] LABS: BASO # 0.1 10^3/uL (0.0-0.2); BASO % 0.5 % (0.0-1.0); EOS # 1.4 10^3/uL (0.0-0.5); EOS % 7.6 % (0.0-3.0); HEMATOCRIT 49.2 % (42.0-52.0); HEMOGLOBIN 17.4 g/dl (13.5-17.5); LYMPH # 4.7 10^3/uL (1.5-5.0); LYMPH % 25.1 % (24.0-44.0); MEAN CORPUSCULAR HEMOGLOBIN 32.2 pg (27.0-33.0); MEAN CORPUSCULAR HGB CONC 35.4 g/dl (32.0-36.5); MEAN CORPUSCULAR VOLUME 90.9 fl (80.0-96.0); MONO # 1.1 10^3/uL (0.0-0.8); MONO % 5.7 % (2.0-8.0); NEUTROPHILS # 11.4 10^3/uL (1.5-8.5); NEUTROPHILS % 60.8 % (36.0-66.0); PLATELET COUNT, AUTOMATED 260 10^3/uL (150-450); RED BLOOD COUNT 5.41 10^6/uL (4.30-6.10); WHITE BLOOD COUNT 18.8 10^3/uL (4.0-10.0)
[2023-01-11 16:40] LABS: ALBUMIN 3.9 G/DL (3.2-5.2); BILIRUBIN,DIRECT 0.1 MG/DL (<0.4); BILIRUBIN,TOTAL 0.4 MG/DL (0.3-1.2); TOTAL PROTEIN 6.6 G/DL (5.7-8.2)
[2023-01-11] MEDS ORDERED: ISOVUE-370 76% 100ML VIAL As Ordered ONE (18:04)
[2023-01-11] MEDS ORDERED: CIPR-249 PO (19:10)
[2023-01-11] MEDS ORDERED: METR-265 PO (19:10)
[2023-01-11 19:16] VITALS: BP 129/69
== END 2023-01-11 19:35 | disposition home or self-care (01) ==
LOC: M ED 15:10
DX: K52.9 Noninfective gastroenteritis and colitis, unspecified (principal); K82.8 Other specified diseases of gallbladder; G47.33 Obstructive sleep apnea (adult) (pediatric); F17.200 Nicotine dependence, unspecified, uncomplicated; F10.10 Alcohol abuse, uncomplicated; Z87.442 Personal history of urinary calculi; Z79.2 Long term (current) use of antibiotics; Z79.899 Other long term (current) drug therapy; Z79.02 Long term (current) use of antithrombotics/antiplatelets
CPT/HCPCS: 74177; 76705; 80047; 80076; 83690; 85025; 87507; 96361; 96374; 99284; J2405; Q9967

== ENCOUNTER → 2023-01-12 | Outpatient (CLI) | payer OTHER ==
[~2023-01-12] MED LIST changes: +AMOX875T2
== END ==
LOC: M WUC 14:18
PROVIDERS: ATTEND Nurse Practitioner Family
DX: R07.82 Intercostal pain (principal)

== ENCOUNTER → 2023-02-24 | Outpatient (REF) | payer OTHER ==
[~2023-02-24] MED LIST changes: +DICY-61 PO; -DICY10CA13 PO; +EXCETAB32 PO; +METH-1164 PO
[2023-02-24 13:07] LABS: CHOLESTEROL RISK RATIO 6.21 (<5); LDL CHOLESTEROL 103.4 MG/DL (<100)
== END ==
LOC: M LAB REF 12:07
PROVIDERS: ATTEND Nurse Practitioner Family
DX: E78.5 Hyperlipidemia, unspecified (principal)

== ENCOUNTER 2023-02-25 17:37 | Emergency (ER) | payer OTHER ==
[~2023-02-25] VITALS: Ht 188 cm; Wt 113.2 kg
[~2023-02-25 17:37] MED LIST changes: -EXCETAB32 PO; -METH-1164 PO
[2023-02-25] MEDS ORDERED: EXCETAB32 PO (17:46)
[2023-02-25] MEDS ORDERED: methocarbamoL 500 MG TAB PO ONE (19:15)
[2023-02-25] MEDS ORDERED: METOCLOPRAMIDE INJ 10MG/2ML VIAL IV ONE (19:15)
[2023-02-25] MEDS ORDERED: dexAMETHasone 20MG/5ML VIAL IV ONE (19:15)
[2023-02-25 20:16] LABS: BASO # 0.1 10^3/uL (0.0-0.2); EOS # 0.6 10^3/uL (0.0-0.5); HEMATOCRIT 44.7 % (42.0-52.0); HEMOGLOBIN 15.3 g/dl (13.5-17.5); LYMPH # 5.6 10^3/uL (1.5-5.0); LYMPH % 45.4 % (24.0-44.0); MEAN CORPUSCULAR HEMOGLOBIN 31.7 pg (27.0-33.0); MEAN CORPUSCULAR HGB CONC 34.2 g/dl (32.0-36.5); MEAN CORPUSCULAR VOLUME 92.7 fl (80.0-96.0); MONO % 8.3 % (2.0-8.0); NEUTROPHILS # 4.9 10^3/uL (1.5-8.5); PLATELET COUNT, AUTOMATED 244 10^3/uL (150-450); RED BLOOD COUNT 4.82 10^6/uL (4.30-6.10); WHITE BLOOD COUNT 12.3 10^3/uL (4.0-10.0)
[2023-02-25 20:41] LABS: BLOOD UREA NITROGEN 6 MG/DL (9-23); CALCIUM LEVEL 8.9 MG/DL (8.5-10.1); CARBON DIOXIDE LEVEL 26 MMOL/L (20-31); CHLORIDE LEVEL 109 MMOL/L (98-107); CREATININE FOR GFR 0.86 MG/DL (0.70-1.30); GLOMERULAR FILTRATION RATE > 60.0 (>60); GLUCOSE, FASTING 86 MG/DL (60-100); SODIUM LEVEL 143 MMOL/L (136-145)
[2023-02-25 20:42] LABS: THYROID STIMULATING HORMONE 4.039 uIU/ML (0.55-4.78)
[2023-02-25 20:43] LABS: FREE T4 0.96 NG/DL (0.89-1.76)
[2023-02-25 21:44] LABS: PTH INTACT 60.7 PG/ML (18.5-88.0)
[2023-02-25] MEDS ORDERED: METH-1164 PO (22:10)
[2023-02-25 22:20] VITALS: BP 130/89; TEMP 97.5; O2SAT 96
== END 2023-02-25 22:39 | disposition home or self-care (01) ==
LOC: M ED 17:37
DX: M54.2 Cervicalgia (principal); R51.9 Headache, unspecified; E78.5 Hyperlipidemia, unspecified; F10.10 Alcohol abuse, uncomplicated; Z79.82 Long term (current) use of aspirin; Z79.02 Long term (current) use of antithrombotics/antiplatelets; Z79.899 Other long term (current) drug therapy
CPT/HCPCS: 70450; 72125; 80048; 83970; 84439; 84443; 85025; 96374; 96375; 99284; J1100; J2765

== ENCOUNTER → 2023-04-22 | Outpatient (REF) | payer OTHER ==
[~2023-04-22] MED LIST changes: +EXCETAB32 PO; +METH-1164 PO
[2023-04-22 12:57] LABS: CHOLESTEROL RISK RATIO 5.17 (<5); HDL CHOLESTEROL 28.6 MG/DL (>40); LDL CHOLESTEROL 76.4 MG/DL (<100); NON-HDL-C 119.4 MG/DL
[2023-04-23 15:08] LABS: EBV AB TO NUCLEAR ANTIGEN 68.7 U/mL (0.0-17.9); EBV VIRAL CAPSID AG IgG >600.0 U/mL (0.0-17.9); EBV VIRAL CAPSID AG IgM <36.0 U/mL (0.0-35.9)
== END ==
LOC: M LAB REF 11:40
PROVIDERS: ATTEND Nurse Practitioner Family
DX: E78.5 Hyperlipidemia, unspecified (principal); B27.00 Gammaherpesviral mononucleosis without complication

== ENCOUNTER 2023-11-11 17:20 | Emergency (ER) | payer OTHER, SELFPAY ==
[~2023-11-11] VITALS: Ht 188 cm; Wt 117.9 kg
[~2023-11-11 17:20] MED LIST changes: +FLON1SPR NARES; +GNPTAB36 PO; +OMEP-173 PO; +SUCR1TAB56 PO
[2023-11-11 19:08] LABS: BASO # 0.2 10^3/uL (0.0-0.2); BASO % 1.2 % (0.0-1.0); EOS # 0.7 10^3/uL (0.0-0.5); EOS % 4.2 % (0.0-3.0); HEMATOCRIT 47.9 % (42.0-52.0); LYMPH # 6.2 10^3/uL (1.5-5.0); LYMPH % 39.7 % (24.0-44.0); MEAN CORPUSCULAR HEMOGLOBIN 32.6 pg (27.0-33.0); MEAN CORPUSCULAR HGB CONC 35.5 g/dl (32.0-36.5); MEAN CORPUSCULAR VOLUME 91.9 fl (80.0-96.0); MONO # 1.1 10^3/uL (0.0-0.8); MONO % 6.9 % (2.0-8.0); NEUTROPHILS # 7.4 10^3/uL (1.5-8.5); NEUTROPHILS % 47.7 % (36.0-66.0); PLATELET COUNT, AUTOMATED 278 10^3/uL (150-450); RED BLOOD COUNT 5.21 10^6/uL (4.30-6.10); WHITE BLOOD COUNT 15.6 10^3/uL (4.0-10.0)
[2023-11-11 19:25] LABS: ERYTHROCYTE SEDIMENTATION RATE 6 mm/hr (0-15)
[2023-11-11 19:28] LABS: C REACTIVE PROTEIN QUANTITATIV < 0.40 MG/DL (<1.0)
[2023-11-11 19:30] LABS: BLOOD UREA NITROGEN 6 MG/DL (9-23); CARBON DIOXIDE LEVEL 29 MMOL/L (20-31); CHLORIDE LEVEL 111 MMOL/L (98-107); CREATININE FOR GFR 0.89 MG/DL (0.70-1.30); GLOMERULAR FILTRATION RATE > 60.0 (>60); GLUCOSE, FASTING 89 MG/DL (60-100); MAGNESIUM LEVEL 1.9 MG/DL (1.8-2.4); POTASSIUM SERUM 4.3 MMOL/L (3.5-5.1); SODIUM LEVEL 145 MMOL/L (136-145)
[2023-11-11] MEDS: NS 1,000 ML IV ONE (20:00)
[2023-11-11] MEDS: ACETAMINOPHEN TAB 650MG DOSE (2X325MG) PO ONE (20:00)
[2023-11-11] MEDS: KETOROLAC 30 MG/ML 1ML VIAL IV ONE (20:04)
[2023-11-11 20:12] VITALS: BP 137/94; TEMP 97.6; O2SAT 96
[2023-11-11] MEDS ORDERED: NAPR-837 PO (21:02)
[2023-11-11] MEDS ORDERED: METH-1165 PO (21:02)
== END 2023-11-11 21:06 | disposition home or self-care (01) ==
LOC: M ED 17:20
DX: G44.209 Tension-type headache, unspecified, not intractable (principal); G47.33 Obstructive sleep apnea (adult) (pediatric); F17.200 Nicotine dependence, unspecified, uncomplicated; Z79.82 Long term (current) use of aspirin; Z79.02 Long term (current) use of antithrombotics/antiplatelets; Z79.83 Long term (current) use of bisphosphonates; Z79.810 Long term (current) use of selective estrogen receptor modulators (SERMs); Z79.899 Other long term (current) drug therapy
CPT/HCPCS: 80048; 83735; 85025; 85652; 86140; 87486; 87581; 87633; 87798; 96361; 96374; 99284; J1885

== ENCOUNTER → 2024-01-19 | Outpatient (CLI) | payer OTHER ==
[~2024-01-19] MED LIST changes: +METH-1165 PO; +NAPR-837 PO
== END ==
LOC: M WUC 09:16
PROVIDERS: ATTEND Nurse Practitioner Family
DX: M79.642 Pain in left hand (principal)

== ENCOUNTER 2024-05-03 12:57 | Emergency (ER) | payer OTHER ==
[~2024-05-03] VITALS: Ht 188 cm; Wt 115.5 kg
[2024-05-03 13:00] VITALS: TEMP 97.1
[2024-05-03 18:15] LABS: HEMATOCRIT 46.5 % (42.0-52.0); HEMOGLOBIN 16.1 g/dl (13.5-17.5); MEAN CORPUSCULAR HEMOGLOBIN 31.9 pg (27.0-33.0); MEAN CORPUSCULAR HGB CONC 34.6 g/dl (32.0-36.5); MEAN CORPUSCULAR VOLUME 92.3 fl (80.0-96.0); PLATELET COUNT, AUTOMATED 266 10^3/uL (150-450); RED BLOOD COUNT 5.04 10^6/uL (4.30-6.10); WHITE BLOOD COUNT 16.6 10^3/uL (4.0-10.0)
[2024-05-03 18:28] LABS: INR 1.11; PARTIAL THROMBOPLASTIN TIME 31.3 SECONDS (24.8-34.2)
[2024-05-03 18:55] LABS: ATYPICAL LYMPH 5 % (0-5); EOSINOPHILS 6 % (0-3); LYMPHOCYTES 40 % (16-44); MONOCYTES 3 % (0-5); NEUTROPHILS 46 % (28-66); PLATELET ESTIMATE NORMAL (NORMAL)
[2024-05-03 18:57] LABS: BLOOD UREA NITROGEN 8 MG/DL (9-23); CALCIUM LEVEL 10.1 MG/DL (8.5-10.1); CARBON DIOXIDE LEVEL 27 MMOL/L (20-31); CHLORIDE LEVEL 109 MMOL/L (98-107); CREATININE FOR GFR 0.91 MG/DL (0.70-1.30); GLOMERULAR FILTRATION RATE > 60.0 (>60); GLUCOSE, FASTING 83 MG/DL (60-100); POTASSIUM SERUM 4.1 MMOL/L (3.5-5.1); SODIUM LEVEL 143 MMOL/L (136-145)
[2024-05-03 19:18] VITALS: BP 133/78; O2SAT 98
== END 2024-05-03 19:20 | disposition home or self-care (01) ==
LOC: M ED 12:57
DX: M79.18 Myalgia, other site (principal); D72.829 Elevated white blood cell count, unspecified; R51.9 Headache, unspecified; F17.200 Nicotine dependence, unspecified, uncomplicated; Z90.89 Acquired absence of other organs; Z79.82 Long term (current) use of aspirin; Z79.02 Long term (current) use of antithrombotics/antiplatelets; Z79.899 Other long term (current) drug therapy

== ENCOUNTER → 2024-05-10 | Outpatient (REF) | payer OTHER ==
[2024-05-10 13:44] LABS: ALBUMIN 4.3 G/DL (3.2-5.2); ALKALINE PHOSPHATASE 107 U/L (46-116); ALT/SGPT 22 U/L (7.0-40); AST/SGOT 20 U/L (<34); BILIRUBIN,TOTAL 0.5 MG/DL (0.3-1.2); BLOOD UREA NITROGEN 7 MG/DL (9-23); CALCIUM LEVEL 9.8 MG/DL (8.5-10.1); CARBON DIOXIDE LEVEL 29 MMOL/L (20-31); CHLORIDE LEVEL 111 MMOL/L (98-107); CHOLESTEROL LEVEL 155 MG/DL (<200); CHOLESTEROL RISK RATIO 5.78 (<5); CREATININE FOR GFR 0.97 MG/DL (0.70-1.30); GLOMERULAR FILTRATION RATE > 60.0 (>60); GLUCOSE, FASTING 88 MG/DL (60-100); HDL CHOLESTEROL 26.8 MG/DL (>40); LDL CHOLESTEROL 86.4 MG/DL (<100); MAGNESIUM LEVEL 1.9 MG/DL (1.8-2.4); NON-HDL-C 128.2 MG/DL; POTASSIUM SERUM 4.6 MMOL/L (3.5-5.1); SODIUM LEVEL 143 MMOL/L (136-145); TOTAL PROTEIN 7.1 G/DL (5.7-8.2); TRIGLYCERIDES LEVEL 209 MG/DL (<150)
[2024-05-10 13:46] LABS: THYROID STIMULATING HORMONE 3.325 uIU/ML (0.55-4.78); TOTAL 25(OH) VITAMIN D 19.2 NG/ML (20.0-100.0)
[2024-05-10 14:20] LABS: HEMOGLOBIN A1c 4.9 % (4.0-6.0)
== END ==
LOC: M LAB REF 13:11
PROVIDERS: ATTEND Nurse Practitioner Family
DX: E66.9 Obesity, unspecified (principal); E55.9 Vitamin D deficiency, unspecified

== ENCOUNTER 2024-05-17 01:00 | Emergency (ER) | payer OTHER ==
[~2024-05-17] VITALS: Ht 188 cm; Wt 116.1 kg
[2024-05-17] MEDS ORDERED: ONDANSETRON 4MG 2ML VIAL As Ordered ONE (01:31)
[2024-05-17] MEDS ORDERED: KETOROLAC 30 MG/ML 1ML VIAL As Ordered ONE (01:31)
[2024-05-17] MEDS: NS 1,000 ML IV ONE (01:36)
[2024-05-17] MEDS: ONDANSETRON 4MG 2ML VIAL IV ONE (01:36)
[2024-05-17] MEDS: KETOROLAC 30 MG/ML 1ML VIAL IV ONE (01:36)
[2024-05-17 01:38] LABS: HEMATOCRIT 46.2 % (42.0-52.0); HEMOGLOBIN 16.2 g/dl (13.5-17.5); MEAN CORPUSCULAR HEMOGLOBIN 32.3 pg (27.0-33.0); MEAN CORPUSCULAR HGB CONC 35.1 g/dl (32.0-36.5); MEAN CORPUSCULAR VOLUME 92.2 fl (80.0-96.0); PLATELET COUNT, AUTOMATED 253 10^3/uL (150-450); RED BLOOD COUNT 5.01 10^6/uL (4.30-6.10); WHITE BLOOD COUNT 17.4 10^3/uL (4.0-10.0)
[2024-05-17] MEDS ORDERED: MORPHINE 4 MG/ML 1ML VIAL As Ordered ONE (01:48)
[2024-05-17] MEDS: MORPHINE 4 MG/ML 1ML VIAL IV PRN (01:50)
[2024-05-17 02:00] LABS: LIPASE 62 U/L (12-53)
[2024-05-17 02:02] LABS: ALKALINE PHOSPHATASE 108 U/L (46-116); ALT/SGPT 22 U/L (7.0-40); AST/SGOT 20 U/L (<34); BILIRUBIN,DIRECT 0.2 MG/DL (<0.4); BILIRUBIN,TOTAL 0.4 MG/DL (0.3-1.2); BLOOD UREA NITROGEN 10 MG/DL (9-23); CALCIUM LEVEL 9.3 MG/DL (8.5-10.1); CARBON DIOXIDE LEVEL 25 MMOL/L (20-31); CHLORIDE LEVEL 110 MMOL/L (98-107); CREATININE FOR GFR 0.97 MG/DL (0.70-1.30); GLOMERULAR FILTRATION RATE > 60.0 (>60); GLUCOSE, FASTING 90 MG/DL (60-100); POTASSIUM SERUM 4.2 MMOL/L (3.5-5.1); SODIUM LEVEL 141 MMOL/L (136-145)
[2024-05-17 02:07] LABS: ATYPICAL LYMPH 11 % (0-5); EOSINOPHILS 10 % (0-3); LYMPHOCYTES 25 % (16-44); MONOCYTES 6 % (0-5); NEUTROPHILS 48 % (28-66)
[2024-05-17 02:08] LABS: PLATELET ESTIMATE NORMAL (NORMAL)
[2024-05-17 03:23] VITALS: TEMP 98
[2024-05-17 05:45] VITALS: BP 144/86; O2SAT 97
[2024-05-17] MEDS ORDERED: PERC5TAB12 PO (06:03)
[2024-05-17] MEDS ORDERED: FLOM0.4C39 PO (06:03)
[2024-05-17] MEDS: TAMSULOSIN 0.4 MG CAP PO ONE (06:07)
== END 2024-05-17 06:13 | disposition home or self-care (01) ==
LOC: M ED 01:00
DX: N20.1 Calculus of ureter (principal); E78.5 Hyperlipidemia, unspecified; F17.200 Nicotine dependence, unspecified, uncomplicated; F10.10 Alcohol abuse, uncomplicated; Z79.82 Long term (current) use of aspirin; Z79.02 Long term (current) use of antithrombotics/antiplatelets; Z79.2 Long term (current) use of antibiotics; Z79.899 Other long term (current) drug therapy
CPT/HCPCS: 74176; 80048; 80076; 81001; 83690; 85025; 93041; 96361; 96374; 96375; 99284; J1885; J2405

== ENCOUNTER 2024-05-21 06:28 | Emergency (ER) | payer OTHER ==
[~2024-05-21] VITALS: Ht 188 cm; Wt 115.6 kg
[~2024-05-21 06:28] MED LIST changes: +FLOM0.4C39 PO; +PERC5TAB12 PO
[2024-05-21 07:16] LABS: BASO # 0.2 10^3/uL (0.0-0.2); BASO % 1.1 % (0.0-1.0); EOS # 0.8 10^3/uL (0.0-0.5); EOS % 5.3 % (0.0-3.0); HEMATOCRIT 47.1 % (42.0-52.0); HEMOGLOBIN 16.5 g/dl (13.5-17.5); LYMPH # 4.8 10^3/uL (1.5-5.0); LYMPH % 31.4 % (24.0-44.0); MEAN CORPUSCULAR HEMOGLOBIN 32.7 pg (27.0-33.0); MEAN CORPUSCULAR VOLUME 93.3 fl (80.0-96.0); MONO # 1.2 10^3/uL (0.0-0.8); MONO % 7.9 % (2.0-8.0); NEUTROPHILS # 8.2 10^3/uL (1.5-8.5); PLATELET COUNT, AUTOMATED 273 10^3/uL (150-450); RED BLOOD COUNT 5.05 10^6/uL (4.30-6.10); WHITE BLOOD COUNT 15.2 10^3/uL (4.0-10.0)
[2024-05-21 07:45] LABS: LIPASE 49 U/L (12-53)
[2024-05-21 07:47] LABS: ALKALINE PHOSPHATASE 105 U/L (46-116); ALT/SGPT 23 U/L (7.0-40); AST/SGOT 20 U/L (<34); BILIRUBIN,DIRECT 0.1 MG/DL (<0.4); BILIRUBIN,TOTAL 0.3 MG/DL (0.3-1.2); BLOOD UREA NITROGEN 10 MG/DL (9-23); CALCIUM LEVEL 9.7 MG/DL (8.5-10.1); CARBON DIOXIDE LEVEL 26 MMOL/L (20-31); CHLORIDE LEVEL 111 MMOL/L (98-107); CREATININE FOR GFR 1.09 MG/DL (0.70-1.30); GLOMERULAR FILTRATION RATE > 60.0 (>60); GLUCOSE, FASTING 99 MG/DL (60-100); SODIUM LEVEL 142 MMOL/L (136-145); TOTAL PROTEIN 6.9 G/DL (5.7-8.2)
[2024-05-21 08:39] LABS: Trichomonas vaginalis (AMP) NOT DETECTED (NEGATIVE)
[2024-05-21 09:00] VITALS: BP 138/83; TEMP 98.5; O2SAT 98
[2024-05-21 09:03] LABS: GC DNA AMPLIFICATION NEGATIVE (NEGATIVE)
== END 2024-05-21 09:14 | disposition home or self-care (01) ==
LOC: M ED 06:28
DX: N20.1 Calculus of ureter (principal); N23 Unspecified renal colic; G47.30 Sleep apnea, unspecified; E78.5 Hyperlipidemia, unspecified; Z79.82 Long term (current) use of aspirin; Z79.02 Long term (current) use of antithrombotics/antiplatelets; Z79.899 Other long term (current) drug therapy

== ENCOUNTER 2024-08-27 18:39 | Emergency (ER) | payer OTHER ==
[~2024-08-27] VITALS: Ht 188 cm; Wt 115.7 kg
[2024-08-27 18:44] VITALS: BP 131/87; TEMP 97.6; O2SAT 99
== END 2024-08-27 22:28 | disposition left against medical advice (07) ==
LOC: M ED 18:39
DX: Z53.21 Procedure and treatment not carried out due to patient leaving prior to being seen by health care provider (principal)

== ENCOUNTER → 2024-09-11 | Outpatient (REF) | payer OTHER ==
[2024-09-11 15:04] LABS: CHOLESTEROL RISK RATIO 4.34 (<5); HDL CHOLESTEROL 33.8 MG/DL (>40); LDL CHOLESTEROL 83.4 MG/DL (<100); NON-HDL-C 113.2 MG/DL
== END ==
LOC: M LAB REF 12:36
PROVIDERS: ATTEND Nurse Practitioner Family
DX: E78.5 Hyperlipidemia, unspecified (principal)

== ENCOUNTER → 2024-10-17 | Outpatient (REF) | payer OTHER | LOC: M LAB REF 12:22 | PROVIDERS: ATTEND Physician Assistant | DX: L02.411 Cutaneous abscess of right axilla (principal) ==

== ENCOUNTER 2024-11-11 20:02 | Emergency (ER) | payer OTHER ==
[~2024-11-11] VITALS: Ht 188 cm; Wt 118.9 kg
[2024-11-11] MEDS ORDERED: FLUT15.820 (20:27)
[2024-11-11 20:37] VITALS: TEMP 99.7
[2024-11-11 20:52] LABS: HEMATOCRIT 46.6 % (42.0-52.0); HEMOGLOBIN 16.5 g/dl (13.5-17.5); MEAN CORPUSCULAR HEMOGLOBIN 32.2 pg (27.0-33.0); MEAN CORPUSCULAR HGB CONC 35.4 g/dl (32.0-36.5); MEAN CORPUSCULAR VOLUME 90.8 fl (80.0-96.0); PLATELET COUNT, AUTOMATED 269 10^3/uL (150-450); RED BLOOD COUNT 5.13 10^6/uL (4.30-6.10)
[2024-11-11 20:55] LABS: INR 1.02; PROTHROMBIN TIME 13.7 SECONDS (12.5-14.5)
[2024-11-11 21:13] LABS: LIPASE 61 U/L (12-53)
[2024-11-11 21:15] LABS: ALBUMIN 3.6 G/DL (3.2-5.2); ALKALINE PHOSPHATASE 114 U/L (40-129); ALT/SGPT 24 U/L (7.0-40); AST/SGOT 18 U/L (<34); BILIRUBIN,DIRECT 0.1 MG/DL (<0.4); BILIRUBIN,TOTAL 0.3 MG/DL (0.3-1.2); BLOOD UREA NITROGEN 7 MG/DL (9-23); CALCIUM LEVEL 9.1 MG/DL (8.5-10.1); CARBON DIOXIDE LEVEL 24 MMOL/L (20-31); CHLORIDE LEVEL 111 MMOL/L (98-107); CREATININE FOR GFR 0.92 MG/DL (0.70-1.30); GLOMERULAR FILTRATION RATE > 60.0 (>60); GLUCOSE, FASTING 116 MG/DL (60-100); POTASSIUM SERUM 3.8 MMOL/L (3.5-5.1); SODIUM LEVEL 143 MMOL/L (136-145); TOTAL PROTEIN 6.5 G/DL (5.7-8.2)
[2024-11-11 21:30] LABS: CK-MB VALUE MASS < 1.0 NG/ML (<3.6)
[2024-11-11 21:31] LABS: CPK CREATINE PHOSPHOKINASE 132 U/L (46-171); MB/CK RELATIVE INDEX 0.75 (< OR =4)
[2024-11-11 21:35] LABS: ATYPICAL LYMPH 7 % (0-5); BASOPHILS 1 % (0-1); EOSINOPHILS 4 % (0-3); LYMPHOCYTES 23 % (16-44); MONOCYTES 8 % (0-5); NEUTROPHILS 57 % (28-66); PLATELET ESTIMATE INVALID (NORMAL)
[2024-11-11 21:36] LABS: PLATELET CLUMPS MODERATE AMT
[2024-11-11 22:30] VITALS: BP 112/78; O2SAT 96
== END 2024-11-11 22:32 | disposition home or self-care (01) ==
LOC: M ED 20:02
DX: J06.9 Acute upper respiratory infection, unspecified (principal); D72.829 Elevated white blood cell count, unspecified; G47.33 Obstructive sleep apnea (adult) (pediatric); F17.200 Nicotine dependence, unspecified, uncomplicated

== ENCOUNTER → 2025-03-30 | Outpatient (CLI) | payer OTHER ==
[~2025-03-30] MED LIST changes: -FLOM0.4C39 PO; +FLUT15.820; +TAMS-18 PO
== END ==
LOC: M PLAIMG 12:05
PROVIDERS: ATTEND Student in an Organized Health Care Education/Training Program
DX: M25.511 Pain in right shoulder (principal)

== ENCOUNTER 2025-04-26 05:51 | Emergency (ER) | payer OTHER ==
[~2025-04-26] VITALS: Ht 188 cm; Wt 117.0 kg
[~2025-04-26 05:51] MED LIST changes: -IBUP-1022 PO; +IBUP600T42 PO
[2025-04-26] MEDS: LIDOCAINE 1% MDV 20 ML VIAL SC ONE (07:16)
[2025-04-26] MEDS ORDERED: DOXY-440 PO (07:20)
[2025-04-26] MEDS: DOXYCYCLINE HYCLATE 100 MG TABLET PO ONE (07:42)
[2025-04-26 07:45] VITALS: BP 135/63; TEMP 97.3; O2SAT 98
== END 2025-04-26 07:45 | disposition home or self-care (01) ==
LOC: M ED 05:51
DX: E78.5 Hyperlipidemia, unspecified (principal); G47.30 Sleep apnea, unspecified; M54.50 Low back pain, unspecified; F17.200 Nicotine dependence, unspecified, uncomplicated; Z79.02 Long term (current) use of antithrombotics/antiplatelets; Z79.1 Long term (current) use of non-steroidal anti-inflammatories (NSAID); Z79.899 Other long term (current) drug therapy

== ENCOUNTER 2025-04-27 05:51 | Emergency (ER) | payer OTHER ==
[~2025-04-27] VITALS: Ht 188 cm; Wt 116.8 kg
[~2025-04-27 05:51] MED LIST changes: +DOXY-440 PO
[2025-04-27 05:53] VITALS: BP 134/91; TEMP 96.8; O2SAT 97
== END 2025-04-27 06:55 | disposition home or self-care (01) ==
LOC: M ED 05:51
DX: Z48.01 Encounter for change or removal of surgical wound dressing (principal); M54.50 Low back pain, unspecified; E78.5 Hyperlipidemia, unspecified; G47.30 Sleep apnea, unspecified; R51.9 Headache, unspecified; F17.200 Nicotine dependence, unspecified, uncomplicated; Z79.02 Long term (current) use of antithrombotics/antiplatelets; Z79.1 Long term (current) use of non-steroidal anti-inflammatories (NSAID); Z79.2 Long term (current) use of antibiotics; Z79.899 Other long term (current) drug therapy

== ENCOUNTER → 2025-05-23 | Outpatient (REF) | payer OTHER ==
[2025-05-23 14:28] LABS: ALT/SGPT 29 U/L (7.0-40); AST/SGOT 31 U/L (<34); CALCIUM LEVEL 9.3 MG/DL (8.5-10.1); CARBON DIOXIDE LEVEL 28 MMOL/L (20-31); CHLORIDE LEVEL 106 MMOL/L (98-107); CHOLESTEROL LEVEL 164 MG/DL (<200); CHOLESTEROL RISK RATIO 5.75 (<5); CREATININE FOR GFR 1.06 MG/DL (0.70-1.30); GLOMERULAR FILTRATION RATE > 90.0 (>60); LDL CHOLESTEROL 102.1 MG/DL (<100); NON-HDL-C 135.5 MG/DL; POTASSIUM SERUM 4.7 MMOL/L (3.5-5.1); SODIUM LEVEL 143 MMOL/L (136-145); TRIGLYCERIDES LEVEL 167 MG/DL (<150)
== END ==
LOC: M LAB REF 12:46
PROVIDERS: ATTEND Student in an Organized Health Care Education/Training Program
DX: E78.5 Hyperlipidemia, unspecified (principal)

== ENCOUNTER 2025-07-15 18:43 | Emergency (ER) | payer OTHER ==
[~2025-07-15] VITALS: Ht 188 cm; Wt 115.6 kg
[2025-07-15 18:47] VITALS: BP 129/76; TEMP 97.3; O2SAT 98
[2025-07-15 19:19] LABS: PLATELET COUNT, AUTOMATED 272 10^3/uL (150-450)
[2025-07-15 19:34] LABS: ATYPICAL LYMPH 12 % (0-5); BASOPHILS 1 % (0-1); EOSINOPHILS 5 % (0-3); LYMPHOCYTES 25 % (16-44); MONOCYTES 3 % (0-5); NEUTROPHILS 54 % (28-66); PLATELET ESTIMATE NORMAL (NORMAL)
[2025-07-15 19:53] LABS: C REACTIVE PROTEIN QUANTITATIV < 0.50 MG/DL (<1.0); CALCIUM LEVEL 8.8 MG/DL (8.5-10.1); CARBON DIOXIDE LEVEL 21 MMOL/L (20-31); CHLORIDE LEVEL 110 MMOL/L (98-107); CREATININE FOR GFR 0.94 MG/DL (0.70-1.30); GLOMERULAR FILTRATION RATE > 90.0 (>60); POTASSIUM SERUM 3.9 MMOL/L (3.5-5.1); SODIUM LEVEL 141 MMOL/L (136-145)
[2025-07-15] MEDS: LIDOCAINE 1% MDV 20 ML VIAL IM ONE (20:10)
[2025-07-15] MEDS ORDERED: CEPH500C PO (20:33)
== END 2025-07-15 20:38 | disposition home or self-care (01) ==
LOC: M ED 18:43
DX: L02.411 Cutaneous abscess of right axilla (principal); E78.5 Hyperlipidemia, unspecified; Z79.2 Long term (current) use of antibiotics; Z79.899 Other long term (current) drug therapy; Z79.02 Long term (current) use of antithrombotics/antiplatelets; Z79.1 Long term (current) use of non-steroidal anti-inflammatories (NSAID)